=== PATIENT | female | born 1975 | race Caucasian/White ===

== ENCOUNTER 2019-12-11 15:39 | Outpatient (CLI) | payer BC, SELFPAY ==
--- NOTE | 2019-12-11 15:46 | MM_ITS ---
WS: [id number] BILATERAL SCREENING DIGITAL MAMMOGRAM WITH CAD HISTORY: SCREEN COMPARISON: 08/09/2016 and 03/18/2010 Bilateral CC and MLO views submitted. Computer aided detection analyzed. Breast composition: The breasts are extremely dense, which lowers the sensitivity of mammography. No suspicious masses, microcalcifications or architectural distortion. There are a few scattered calcifi cations within each breast. MM/[place] [id number] IMPRESSION: BI-RADS: 2-Benign FOLLOW UP: 1 Year Follow-up
== END 2019-12-11 15:40 | disposition home or self-care (01) ==
LOC: RADSHAW 15:43
PROVIDERS: PCP Family Medicine; Visit Provider Family Medicine
DX: Z12.31 Encounter for screening mammogram for malignant neoplasm of breast (principal)
CPT/HCPCS: 77067

== ENCOUNTER 2022-04-23 12:20 | Outpatient (CLI) | payer BC, SELFPAY ==
--- NOTE | 2022-04-23 13:03 | MM_ITS ---
WS: [id number] BILATERAL 3D TOMOSYNTHESIS DIGITAL SCREENING MAMMOGRAPHY WITH CAD CLINICAL INFORMATION: SCREENING HISTORY: Screening mammogram. No current complaints. COMPARISON: December 11, 2019 TECHNIQUE: Bilateral CC and MLO views. FINDINGS: The breasts are composed of heterogeneous fibroglandular density tissue, which can limit the detectio n of small underlying mass lesions. Tiny punctate calcifications RIGHT breast. No suspicious mass, as ymmetry, calcifications, or architectural distortion. No evidence of malignancy. MM/[place] [id number] IMPRESSION: BI-RADS: 2-Benign FOLLOW UP: 1 Year Follow-up Recommend return to annual screening mammography.
== END 2022-04-23 12:21 | disposition home or self-care (01) ==
LOC: RAD 12:21
PROVIDERS: PCP Family Medicine; Visit Provider Family Medicine
DX: Z12.31 Encounter for screening mammogram for malignant neoplasm of breast (principal)
CPT/HCPCS: 77063; 77067

== ENCOUNTER 2024-01-17 07:57 | Outpatient (CLI) | payer BC, SELFPAY ==
--- NOTE | 2024-01-17 08:00 | USR_ITS ---
PROCEDURE INFORMATION: Exam: US Abdomen; Limited Exam date and time: 01/17/2024 8:07 AM Age: 48 years old Clinical indication: Abdominal pain; Generalized; Additional info: Abdominal pian TECHNIQUE: Imaging protocol: Real time ultrasound of the abdomen with image documentation. Limited exam focused on the region of clinical interest. COMPARISON: None FINDINGS: The liver is normal in echotexture. No focal liver masses identified. No biliary ductal dilatation is seen. The portal vein is patent. No gallstones are appreciated. No pericholecystic fluid or gallbladder wall thickening is appreciated. Common bile duct is normal in size measuring 1 mm. The right kidney measures 8 cm in length and is normal in echotexture. The pancreas is normal in echotexture. The aorta is normal in caliber. The IVC is patent. US/US gall bladder [id number] IMPRESSION: No acute findings.
== END 2024-01-17 07:58 | disposition home or self-care (01) ==
PROVIDERS: PCP Family Medicine; Visit Provider Surgery
DX: R10.84 Generalized abdominal pain (principal)
CPT/HCPCS: 76705

== ENCOUNTER 2024-02-08 06:05 | Day surgery (SDC) | payer BC, SELFPAY ==
[2024-02-08 06:23] VITALS: BP 113/73; PULSE 54; RESP 18; TEMP 36.6; O2SAT 100; BMI 21.9
[2024-02-08] MEDS: sodium chloride 0.9% 1,000 ML 30 ML IV (06:35)
--- NOTE | 2024-02-08 06:47 | PM.HP ---
Providers/Chief Complaint Primary Care Provider: Sophia Hannah MD Chief Complaint: Z12.11 History of Present Illness Cyndi Cortez is a 49 year old female Review of Systems General: Reports: 10 or more systems reviewed and unremarkable except in HPI and below Medications/Allergies Home Medications Medication Instructions Recorded Confirmed Last Taken Type sumatriptan succinate 50 mg tablet 50 mg PO DAILY PRN Migraine 12/19/23 02/08/24 2 Months Ago History Headache ~12/09/23 valacyclovir 1 gram tablet 1,000 mg PO DAILY PRN Outbreak 12/19/23 02/08/24 2 Months Ago History ~12/09/23 ketoconazole 2 % shampoo 1 applic topical DAILY PRN Outbreak 02/06/24 02/08/24 02/06/24 History ketoconazole 2 % topical cream 1 applic topical BID PRN Outbreak 02/06/24 02/06/24 Unknown History Allergies Allergy/AdvReac Type Severity Reaction Status Date / Time No Known Allergies Allergy Verified 12/19/23 10:21 PFSH Acute PFSH: Medical History No pertinent past medical history Family history of melanoma Surgical History History of dilation and curettage Family History Other Hypertension Social History Smoking and tobacco/nicotine status: never used tobacco/nicotine Alcohol intake: never Female Reproductive History: Date of last menstrual period: 01/27/24 Vitals/I&O/Wt Last Vital Signs Temp 97.8 F 02/08/24 06:23 Pulse 54 L 02/08/24 06:23 Resp 18 02/08/24 06:23 BP 113/73 02/08/24 06:23 Pulse Ox 100 02/08/24 06:23 O2 Del Method Room Air 02/08/24 06:23 Weight last 48 hrs Weight 120 lb A&P Assessment and plan (1) Abdominal pain: (2) Nausea: (3) Eructation: (4) Colon cancer screening: Plan EGD and colonoscopy Attestations Medical Necessity Statement*: Home Coding Level of Care Code Acute Code for Chg Fwd Diagnoses Abdominal pain R10.9 Nausea R11.0 Eructation R14.2 Colon cancer screening Z12.11
--- NOTE | 2024-02-08 06:55 | ANES.PREANE2 ---
Pre-Anesthetic Assessment Height/Weight: Height 1.57 m Weight 54.431 kg Temp Pulse Resp BP Pulse Ox O2 Del Method 97.8 F 54 L 18 113/73 100 Room Air 02/08/24 06:23 02/08/24 06:23 02/08/24 06:23 02/08/24 06:23 02/08/24 06:23 02/08/24 06:23 Preop Diagnosis: Screening, Burping, abd pain Operation Date: 02/08/24 07:00 Proposed Procedures p EGD(Not Applicable) - Aron Shell DO s Colonoscopy 73895, [id number], G0121, R10.9, R11.0, R14.2, Z12.11(Not Applicable) - Aron Shell DO Was Beta Navid taken within 24 hours: N/A Was Clonidine taken within 24 hours: N/A Last intake: Intake Last Liquid Date 02/07/24 Last Liquid Time 20:00 Last Solid Date 02/06/24 Last Solid Time 20:00 Social No alcohol and No tobacco Exam alert, oriented x 3, clear to auscultation bilaterally and regular rate & rhythm Airway Submandibular: within normal limits Cervical ROM: within normal limits Mallampati: Class II Dentition: full History/ROS No significant history except as noted and No significant complaints Pulmonary None reported CV/HEM None reported None reported Hepatic None reported GI Gastroesophageal Reflux Disease Metabolic None reported Musc/skel None reported Neuropsych None reported Anesthetic Plan ASA status: 2 Anesthesia: Anesthesia Evaluation and MAC Risk of > 500 ml blood loss (7ml/kg in children): No Medications/Allergies Home Medications Medication Instructions Recorded Confirmed Last Taken Type sumatriptan succinate 50 mg tablet 50 mg PO DAILY PRN Migraine 12/19/23 02/08/24 2 Months Ago History Headache ~12/09/23 valacyclovir 1 gram tablet 1,000 mg PO DAILY PRN Outbreak 12/19/23 02/08/24 2 Months Ago History ~12/09/23 ketoconazole 2 % shampoo 1 applic topical DAILY PRN Outbreak 02/06/24 02/08/24 02/06/24 History ketoconazole 2 % topical cream 1 applic topical BID PRN Outbreak 02/06/24 02/06/24 Unknown History Allergies Allergy/AdvReac Type Severity Reaction Status Date / Time No Known Allergies Allergy Verified 12/19/23 10:21 Current Medications Generic Name Dose Route Start Last Admin Trade Name Freq PRN Reason Stop Dose Admin Sodium Chloride 1,000 mls @ 30 mls/hr 02/08/24 06:15 02/08/24 06:35 Sodium Chloride 0.9% IV 02/09/24 06:14 30 mls/hr .Q24H MAGO Administration PFSH Anesthesia Medical History No pertinent past medical history Family history of melanoma Surgical History History of dilation and curettage Family History Other Hypertension Social History Smoking and tobacco/nicotine status: never used tobacco/nicotine Alcohol intake: never Female Reproductive History Date of last menstrual period: 01/27/24 Data Anesthesia Cardiac Studies: No Data to Display
[2024-02-08 07:16] LABS: OR HCG Qualitative Urine Negative (Negative)
[2024-02-08 07:41] VITALS: BP 99/60; PULSE 59; RESP 14; TEMP 36.2; O2SAT 99
[2024-02-08 07:51] VITALS: BP 111/63; PULSE 56; RESP 16; O2SAT 99
[2024-02-08 08:05] VITALS: BP 110/74; PULSE 54; RESP 16; O2SAT 99
--- NOTE | 2024-02-08 08:25 | ANE.PACU2 ---
Inpatient post-anesthesia follow up: Airway intact: Yes Vital signs: Temperature 97.2 F Pulse Rate 54 Respiratory Rate 16 Blood Pressure 110/74 Pulse Oximetry 99 Oxygen Delivery Me thod Room Air Oxygen Flow Rate Fraction of Inspir ed Oxygen Hydration adequate: Yes Nausea and vomiting: No Pain level: 1 Mental status: Baseline
== END 2024-02-08 08:25 | disposition home or self-care (01) ==
PROVIDERS: PCP Family Medicine; Visit Provider Surgery
PROC: 0DJ08ZZ Inspection of Upper Intestinal Tract, Via Natural or Artificial Opening Endoscopic (ICD-10-PCS; CPT 43235; principal; 2024-02-08 07:00)
PROC: 0DJD8ZZ Inspection of Lower Intestinal Tract, Via Natural or Artificial Opening Endoscopic (ICD-10-PCS; CPT 45378; 2024-02-08 07:00)
DX: Z12.11 Encounter for screening for malignant neoplasm of colon (principal); R14.2 Eructation; K21.9 Gastro-esophageal reflux disease without esophagitis
CPT/HCPCS: 43239; 45378; 81025; 88305; J2704; J7030

== ENCOUNTER 2024-06-06 09:51 | Outpatient (CLI) | payer BC, SELFPAY ==
--- NOTE | 2024-06-06 10:00 | NM_ITS ---
WS: [id number] NUCLEAR MEDICINE HIDA SCAN WITH GALLBLADDER EJECTION FRACTION HISTORY: abdominal pain COMPARISON: Gallbladder ultrasound 01/17/2024 TECHNIQUE: The patient was intravenously injected with 7.6 mCi of TC99m Mebrofenin. Immediate imaging over the right upper quadrant was followed by 5 minute image and additional images for a total of 60 minutes. Normal uptake of radiotracer throughout the liver. Activity identified in the gallbladder at 10 minutes and well distended by 60 minutes. Activity in the proximal small bowel was seen by 40 minutes. Good washout of the radiotracer from the liver by 60 minutes. The patient then drank 8 ounces of Ensure Plus. Ejection fraction at 60 minutes was 86%. Normal GB ej ection fraction is 35-75%. Post fatty meal symptoms: None. NM/NM hepatobiliary w phar* [id number] IMPRESSION: 1. Normal HIDA scan. 2. Normal gallbladder ejection fraction.
== END 2024-06-06 09:52 | disposition home or self-care (01) ==
PROVIDERS: PCP Family Medicine; Visit Provider Surgery
DX: R10.9 Unspecified abdominal pain (principal)
CPT/HCPCS: 78227; A9537

== ENCOUNTER 2024-10-09 09:36 | Outpatient (CLI) | payer BC, SELFPAY ==
--- NOTE | 2024-10-09 09:42 | MM_ITS ---
WS: [id number] BILATERAL 3D TOMOSYNTHESIS DIGITAL SCREENING MAMMOGRAM WITH CAD CLINICAL INFORMATION: SCREENING HISTORY: Screening mammogram. No current complaints. COMPARISON: 2021 TECHNIQUE: Bilateral CC and MLO. FINDINGS: The breast are composed of extremely dense tissue, which can limit the detection of small underlying mass lesions. No suspicious focal mass, asymmetry, calcifications, or architectural distortion. No evidence of malignancy. Incidental punctate calcifications. Dense nodular subareolar RIGHT breast tissue appears similar to previous MM/MM [facility] tomosynthesis [id number] IMPRESSION: DENSITY: The breasts are extremely dense, which lowers the sensitivity of mammo graphy. BI-RADS: 2 - Benign FOLLOW UP: 1 Year Follow-up Recommend return to annual screening mammography.
== END 2024-10-09 09:37 | disposition home or self-care (01) ==
PROVIDERS: PCP Family Medicine; Visit Provider Family Medicine
DX: Z12.31 Encounter for screening mammogram for malignant neoplasm of breast (principal); R92.343 Mammographic extreme density, bilateral breasts; R92.1 Mammographic calcification found on diagnostic imaging of breast; N63.41 Unspecified lump in right breast, subareolar
CPT/HCPCS: 77063; 77067